=== PATIENT | female | born 1985 | race Caucasian/White ===

== ENCOUNTER 2016-08-28 05:39 | Inpatient (IN) | payer OTHER ==
[2016-08-28] MEDS ORDERED: LIDOCAINE 1% 5 ML SDV ONE (05:43)
[2016-08-28] MEDS ORDERED: CEFUROXIME 1,500 MG in NS 50 ML IV ONE (07:00)
[2016-08-28] MEDS ORDERED: LR 1,000 ML IV ONE (07:54)
[2016-08-28] MEDS ORDERED: LIDOCAINE 1% 5 ML SDV ID PRN (07:54)
[2016-08-28] MEDS ORDERED: DIAZEPAM 5 MG TAB PO PRN (10:59)
[2016-08-28] MEDS ORDERED: BISACODYL 10 MG SUPP PR PRN (10:59)
[2016-08-28] MEDS ORDERED: HYDROmorphONE/DILAUDID 2 MG TAB PO PRN (10:59)
[2016-08-28] MEDS ORDERED: LACTULOSE 20 GM/30 ML UDCUP PO PRN (10:59)
[2016-08-28] MEDS ORDERED: ACETAMINOPHEN 325 MG TAB PO PRN (10:59)
[2016-08-28] MEDS ORDERED: MAGNESIUM HYDROXIDE 30 ML UDCUP PO PRN (10:59)
[2016-08-28] MEDS ORDERED: MAG HYDROX/AL HYDROX/SIMETH 30 ML UDCUP PO PRN (10:59)
[2016-08-28] MEDS ORDERED: NS W/ 20 KCl/L 1,000 ML IV SCH (11:00)
--- NOTE | 2016-08-28 11:09 | POSTOPPROG ---
Post Op Note Date of Operation: 08/28/16 Surgeon: Jose Antonio Tinoco Safety Relief Valve Technician: Marge Anesthesiologist: Jennyfer Anesthesia: GET(General Endotracheal) Pre-op Diagnosis: left trigeminal neuralgia Post-op Diagnosis: same Indication: Trigeminal neuralgia with facial pain Procedure: Left craniotomy with padding of left trigeminal nerve Findings: Two vessels close to nerve Inf/Abcess present in the surg proc area at time of surgery?: No EBL: 50-100
--- NOTE | 2016-08-28 11:13 | NEUSURGPN ---
Date of Surgery: 08/28/16 Post Op Day: 0 Assessment/Plan: POST OP CHECK: Status post left sided craniotomy for trigeminal neuralgia Stable CPM in PACU and transfer to ICU per protocol Head of bed up Subjective: awake, tearful Objective: Vitals: BP 127/60 HR 82 O2: 100% face mask Neuro: alert, speech clear follows commands x 4 CN2-12 grossly intact BEARD to command, sens +LT throughout Neuro Check Frequency: Q1 Urinary Catheter in Place: Yes Urinary Catheter Indication: Surgical Requirement Catheter Insertion Date: 08/28/16 - Physician Discussed Patient with Dr.: Tinoco ICD10 Worksheet Patient Problems: Problems Problem Status Diagnosed Trigeminal nerve disease or syndrome Acute - ICD10 Problem Qualifiers (1) Trigeminal nerve disease or syndrome
[2016-08-28] MEDS: ONDANSETRON 4 MG/2 ML VIAL IVP PRN ×3 (12:27→19:24)
--- NOTE | 2016-08-28 13:18 | GOP ---
[f rep st] OPERATIVE REPORT DATE OF OPERATION: 08/28/2016 SURGEON: Jose Antonio iTnoco MD MANAGER STATE: [place]. ANESTHESIA: General endotracheal. PREOPERATIVE DIAGNOSIS: 1. Left-sided intractable trigeminal neuralgia. 2. Failed conservative care. POSTOPERATIVE DIAGNOSIS: 1. Left-sided intractable trigeminal neuralgia. 2. Failed conservative care. PROCEDURE PERFORMED: Left-sided retromastoid craniectomy for microvascular decompression. Use of int raoperative microscopy. Dural reconstruction with synthetic graft. Use of computer volumetric stereot actic navigation. Intraoperative neurophysiologic testing. FINDINGS: ESTIMATED BLOOD LOSS: Trace. DESCRIPTION OF PROCEDURE: After informed consent was obtained, the patient was taken to the operatin g room and placed in a lateral position with the left side up. The head was clamped in the [place] h ead uriostegui and flexed as much as safely possible 2 fingerbreadths between the chin and the sternum. T he head was elevated in order to maximize venous drainage, and the vertex turned slightly down with t he nose turned slightly up. The [employer] neuronavigational system was connected and verified, and the ideal location for the incision and craniectomy was verified along with using standard anatomic landm arks. A small amount of hair was shaved behind the ear, and the subcutaneous and intramuscular tissue s infiltrated with local anesthesia. A curvilinear S shaped incision was created just behind the hairline and carried in a subperiosteal f ashion down to the mastoid bone area. The 5 mm round fluted bur was utilized to carefully drill out t he bone down to the dura where the coarse nik bur was then used to shave an eggshell around the t ransverse and sigmoid sinus junction. This was carefully trimmed with a Kerrison rongeur and after me ticulous hemostasis was achieved, the dura was opened in a cruciate fashion and reflected anteriorly, inferiorly and posteriorly. The smooth retractor was then inserted under high-power microscopy down to the cerebellar cistern which was incised, and the CSF let out. The [facility] retractor was then ut ilized to carefully inspect the superior area of the cerebellum to make sure there was no bridging ve ins that would be torn, and the retractor was then turned laterally along the lateral cerebellum. Thi s was carefully and gently retracted posteriorly in combination with adjusting the angle of the bed r otation. The superior petrosal sinus was identified and noted to be in the way and limiting enough re traction to access the 5th nerve. This was carefully coagulated with bipolar electrocauterization und er high-power microscopy and sectioned. The 7, 8 nerve complex was identified and stimulated at a rachelle y low threshold and verified. The 9, 10, 11 complex was also visualized lower. The 5th nerve was iden tified and noted to be pulsating next to an artery that was coming out from rostral and medially. Thi s was not physically compressing the nerve, but it was very close to it and the nerve was moving slig htly with the pulsations of the artery. In addition, the superior petrosal sinus connection extended down and ran just along the root of the 5th nerve. A small Vermilion sponge was then placed between the artery and the nerve, and another sponge was placed between the vein and the nerve. The wound was the n copiously irrigated and the retractor removed. There was no significant bleeding throughout the zara e. The dura was then closed in a watertight fashion using a synthetic graft along with running 5-0 Pr olene suture. Gelfoam was placed over this, and the bone dust from the exposure was then placed over this, followed by a partially resorbable and titanium reinforced mesh plate which was secured with fo ur 4 mm screws. The wound was then further copiously irrigated with antibiotic irrigation and closed in a layered fashion using interrupted Vicryl sutures in the fascia, followed by a running nylon on t he skin. COMPLICATIONS: None. INDICATIONS FOR PROCEDURE: The patient is a 31-year-old female with intractable trigeminal neuralgia who has failed extensive conservative care and presents for microvascular decompression after consid ering multiple other options. DISPOSITION: The patient is currently in the process of being repositioned for extubation. ADDENDUM: Please note that the 5th nerve was also stimulated at a very low threshold to verify the c orrect anatomy. /[id number]/MODL
[2016-08-28] MEDS: MIDAZOLAM 2 MG/2 ML VIAL IVP SCH ×3 (13:33→18:15)
[2016-08-28] MEDS: POLYETHYLENE GLYCOL 3350 17 GM PKT PO SCH ×2 (16:37→22:14)
[2016-08-28] MEDS ORDERED: PROMETHAZINE HCL 25 MG/ML VIAL ONE (17:45)
[2016-08-28] MEDS: PROMETHAZINE HCL 25 MG/ML VIAL IV PRN ×2 (17:45→23:31)
[2016-08-28] MEDS: FAMOTIDINE 20 MG TAB PO SCH ×2 (21:10→21:35)
[2016-08-28] MEDS: SENNOSIDES/DOCUSATE SODIUM TAB PO SCH (21:10)
[2016-08-29] MEDS: ONDANSETRON 4 MG/2 ML VIAL IVP PRN (01:35)
[2016-08-29] MEDS ORDERED: DIAZEPAM 5 MG TAB PO PRN (03:38)
[2016-08-29] MEDS: DIAZEPAM 10 MG/2 ML SYR IVP PRN ×2 (03:57→06:46)
[2016-08-29 06:40] LABS: % IMMATURE GRANULYOCYTES 0.3 % (0.0-1.1); ABSOLUTE IMMATURE GRANULOCYTES 0.04 10^3/uL (0.00-0.10); ADD DIFF? NO; ADD MORPH? NO; ADD SCAN? NO; ATYPICAL LYMPHOCYTE FLAG 0 (0-99); FRAGMENT RBC FLAG 0 (0-99); HEMATOCRIT 39.4 % (38.0-47.0); LEFT SHIFT FLG 10 (0-99); LIPEMIA HEMOLYSIS FLAG 80 (0-99); MEAN CELL HEMOGLOBIN 29.7 pg (27.9-34.1); MEAN CELL VOLUME 90.2 fL (81.5-99.8); MEAN PLATELET VOLUME 9.7 fL (8.7-11.7); PLATELET CLUMPS FLAG 30 (0-99); PLATELET COUNT 228 10^3/uL (150-400); RED BLOOD CELL COUNT 4.37 10^6/uL (4.18-5.33); RED CELL DISTRIBUTION WIDTH 13.4 % (11.5-15.2)
[2016-08-29 07:12] LABS: ANION GAP 11 mEq/L (8-16); CALCIUM 8.7 mg/dL (8.5-10.4); CARBON DIOXIDE 21 mEq/l (22-31); CHLORIDE 109 mEq/L (97-110); CREATININE 0.7 mg/dL (0.6-1.0); GLOMERULAR FILTRATION RATE > 60; GLUCOSE 86 mg/dL (70-100); POTASSIUM 4.4 mEq/L (3.5-5.2); SODIUM 141 mEq/L (134-144)
[2016-08-29] MEDS: HYDROCODONE/APAP 10/325 TAB PO PRN ×2 (08:08→11:29)
[2016-08-29] MEDS: PROMETHAZINE HCL 25 MG/ML VIAL IV PRN (08:08)
--- NOTE | 2016-08-29 08:19 | NEUSURGPN ---
Date of Surgery: 08/28/16 Post Op Day: 1 Assessment/Plan: POD #1 Status post left sided craniotomy for trigeminal neuralgia having left sided head pain and anxiety. No neuro deficits Less facial pain today, but still some mild twinges of pain Plan: HOB up. Advance activity and diet as tolerated PT/OT/ST Discussed with Dr. Lopez Subjective: awake, alert. C/O some left posterior head pain and incisional discomfort. Less facial pain but she still notices some milder twinges of pain and has anxiety associated with that. Objective: Dressing: CDI NEuro: BEARD, SEns +LT alert and oriented x 4 follows commands speech clear CN 2-12 grossly intact Urinary Catheter in Place: Yes Urinary Catheter Indication: Surgical Requirement (removing Macdonald this AM) Catheter Insertion Date: 08/28/16 Neurosurgery Physical Exam - Vitals, I&O, Labs I and O 08/28/16 08/29/16 08/30/16 05:59 05:59 05:59 Intake Total 3058 Output Total 1650 Balance 1408 Weight 68.039 kg Intake: Oral (ml) 0 IV Intake (ml) 1350 IV Infused (ml) 1708 NS W/ 20 KCl/L 1,000 ml @ 1708 100 mls/hr IV CONT ISAIAH Rx#:[id number] Output: Urine (ml) 1350 Catheter 1350 Estimated Blood Loss (ml) 100 Emesis (ml) 200 Other: Number of Emesis 1 Occurrences Vital Signs Temp Pulse Resp BP Pulse Ox 37.1 C 62 12 102/64 97 08/29/16 04:00 08/29/16 07:00 08/29/16 07:00 08/29/16 06:00 08/29/16 07:00 Laboratory Results 08/29/16 06:25 08/29/16 06:25 ICD10 Worksheet Patient Problems: Problems Problem Status Diagnosed Trigeminal nerve disease or syndrome Acute - ICD10 Problem Qualifiers (1) Trigeminal nerve disease or syndrome
[2016-08-29] MEDS: SENNOSIDES/DOCUSATE SODIUM TAB PO SCH (08:22)
[2016-08-29] MEDS: POLYETHYLENE GLYCOL 3350 17 GM PKT PO SCH (08:22)
[2016-08-29] MEDS: FAMOTIDINE 20 MG TAB PO SCH (08:22)
[2016-08-29] MEDS ORDERED: OXCARBAZEPINE 300 MG PO SCH (09:00)
[2016-08-29 11:35] VITALS: BP 104/52; PULSE 64; RESP 13; TEMP 98.2; O2SAT 97
[2016-08-30] MEDS ORDERED: ENOXAPARIN 40 MG/0.4 ML SYR SC SCH (09:00)
== END 2016-08-29 12:47 | disposition home or self-care (01) | DRG 27 ==
LOC: F3E 05:39 → F2N 05:39
PROVIDERS: ADMIT Neurological Surgery; ATTEND Neurological Surgery
PROC: 00NK0ZZ Release Trigeminal Nerve, Open Approach (ICD-10-PCS; principal; 2016-08-28 07:15)
DX: G50.0 Trigeminal neuralgia (principal)
CPT/HCPCS: 97161-GP; 97165-GO; C1713; J0690; J0697; J2405; J2550

== ENCOUNTER → 2016-08-28 | Outpatient (CLI) | payer OTHER ==
[~2016-08-28] MED LIST: BACITRACIN 50,000 UNITS/10 ML SYR IRR ONE; BUPIVACAINE/EPI 0.25% 30 ML SDV ONE; DEXAMETHASONE 4 MG/ML VIAL ONE; GADOBUTROL 10 ML VIAL IVP ONE; HYDROmorphONE/DILAUDID 1 MG/ML SYR ONE; LIDOCAINE 2% 100 MG/5 ML SYR IVP ONE; MANNITOL 20% 100 GM/500 ML BAG IV ONE; MIDAZOLAM 2 MG/2 ML VIAL ONE; PROPOFOL/EMULSION 500 MG/50 ML BOTTLE IV ONE; ROCURONIUM 100 MG/10 ML VIAL ONE; ROCURONIUM 50 MG/5 ML VIAL ONE; THROMBIN (RECOMBINANT) 5,000 UNIT VIAL TP ONE; fentaNYL 100 MCG/2 ML INJ ONE
--- NOTE | 2016-08-28 11:39 | MR ---
MRI of the Brain with intravenous contrast at 0634 hours Clinical Indication: Germinal neuralgia, G50.0, preoperative. Comparison: None available. Technique: Stealth protocol sagittal T1 and axial FSPGR 3-D images with the uneventful intravenous a dministration of 6.5 mL Gadavist contrast. Findings: The ventricles, cisterns and sulci are normal without atrophy, hydrocephalus, midline shif t or herniation. No intra-axial enhancing lesions. Brainstem and posterior fossa appear normal. Patricia l flow-void in the superior sagittal sinus. Brainstem, bilateral internal artery canals and bilateral trigeminal nerves demonstrate no enhancing lesions. Impression: Normal MRI brain for trigeminal nerve Stealth preoperative study.
== END ==
LOC: FIMAGING 05:42
PROVIDERS: ATTEND Neurological Surgery
DX: Z01.818 Encounter for other preprocedural examination (principal); G50.0 Trigeminal neuralgia
CPT/HCPCS: A9585; J1100; J1170; J2001; J2250; J2704; J3010